=== PATIENT | male | born 1990 | race Caucasian/White ===

== ENCOUNTER 2024-07-01 11:19 | Emergency (ER) | payer MEDICAID ==
[~2024-07-01] VITALS: Ht 170.2 cm; Wt 73.9 kg
[2024-07-01 11:30] VITALS: BP 130/76; TEMP 97.6; O2SAT 99
[2024-07-01 12:15] LABS: APPEARANCE,URINE SLIGHTLY CLOUDY (CLEAR); BILIRUBIN,URINE NEGATIVE (NEGATIVE); BLOOD, URINE 3+ Ery/uL (NEGATIVE); COLOR,URINE YELLOW (YELLOW); KETONES,URINE NEGATIVE (NEGATIVE); LEUKOCYTE ESTERASE ,URINE 1+ (NEGATIVE); NITRITE, URINE NEGATIVE (NEGATIVE); PROTEIN,URINE TRACE mg/dl (NEGATIVE); UGLUCOSE NEGATIVE (NEGATIVE); UROBILINOGEN,URINE 0.2 EU/dL (0.2)
[2024-07-01 12:20] LABS: ADD URINE CULTURE YES; BACTERIA,URINE 1+ /HPF (None Seen); RBC,URINE 21-50 /HPF (0-2); SQUAMOUS EPITHELIAL CELL,UR 0-2 /HPF (None Seen)
[2024-07-01 12:21] LABS: MUCUS,URINE Few /LPF (None Seen)
[2024-07-01] MEDS ORDERED: CEPH-570 PO (13:27)
== END 2024-07-01 13:36 | disposition home or self-care (01) ==
LOC: ER 11:44
DX: N39.0 Urinary tract infection, site not specified (principal); R19.4 Change in bowel habit; R31.9 Hematuria, unspecified; R30.0 Dysuria
CPT/HCPCS: 81001; 87086-TC